=== PATIENT | male | born 1960 | race Hispanic/Latino ===

== ENCOUNTER → 2019-03-15 | Outpatient (CLI) | payer MEDICARE | END | disposition home or self-care (01) | LOC: RAH 07:51 | PROVIDERS: ATTEND Family Medicine | DX: M48.061 Spinal stenosis, lumbar region without neurogenic claudication (principal); M51.26 Other intervertebral disc displacement, lumbar region; M54.9 Dorsalgia, unspecified | CPT/HCPCS: 72148 ==

== ENCOUNTER 2019-07-31 18:00 | Emergency (ER) | payer MEDICARE ==
[2019-07-31] MEDS ORDERED: KETOROLAC TROMETHAMINE 30MG/ML ONE (19:18)
[2019-07-31] MEDS ORDERED: LIDOCAINE 5% TOPICAL PATCH TP ONE (20:28)
== END 2019-07-31 20:40 | disposition home or self-care (01) ==
LOC: EDH 18:00
DX: M51.27 Other intervertebral disc displacement, lumbosacral region (principal); I10 Essential (primary) hypertension; F31.9 Bipolar disorder, unspecified; F41.9 Anxiety disorder, unspecified; Z72.0 Tobacco use; W18.2XXA Fall in (into) shower or empty bathtub, initial encounter; Y93.E1 Activity, personal bathing and showering; Y92.89 Other specified places as the place of occurrence of the external cause; Y99.8 Other external cause status
CPT/HCPCS: 72131; 96372; 99284; J1885